=== PATIENT | female | born 1955 | race African-American/Black ===

== ENCOUNTER 2017-10-29 22:00 | Emergency (ER) | payer BC ==
[~2017-10-29] VITALS: Ht 165.1 cm; Wt 70.8 kg
[2017-10-29] MEDS ORDERED: TOPROL XL25 MG PO (22:13)
[2017-10-29] MEDS ORDERED: NEURONTIN100 MG PO (22:14)
[2017-10-29 22:15] VITALS: Ht 165.1 cm; Wt 70.8 kg
[2017-10-29 22:53] LABS: CARBON DIOXIDE 25.8 mmol/L (21-32); CHLORIDE SERUM 102 mmol/L (98-107); CREATININE SERUM 0.8 mg/dL (0.6-1.0); GFR1 > 60 mL/min; GLUCOSE SERUM 123 mg/dL (74-106); POTASSIUM SERUM 3.3 mmol/L (3.5-5.1); SODIUM SERUM 140 mmol/L (136-145)
[2017-10-29 22:58] LABS: ALBUMIN 3.8 g/dL (3.4-5.0); ALKALINE PHOSPHATASE 59 U/L (46-116); ALT/SGPT 17 U/L (14-59); AST/SGOT 16 U/L (15-37); BILIRUBIN TOTAL 0.5 mg/dL (0.20-1.00)
[2017-10-29 23:00] LABS: BASOPHIL % 0.4 % (0-2); PLATELET COUNT 248 x10^3mcL (130-400); RED CELL DISTRIBUTION WIDTH 13.6 % (11.5-14.5)
[2017-10-30 00:10] LABS: UA SPECIFIC GRAVITY 1.015 (1.005-1.035); microscopic required? YES; urine erythrocyte NEGATIVE (NEGATIVE)
[2017-10-30 03:33] VITALS: BP 158/92
== END 2017-10-30 03:33 | disposition home or self-care (01) ==
LOC: ED 22:00
PROVIDERS: Emergency Medicine
DX: N39.0 Urinary tract infection, site not specified (principal); J44.9 Chronic obstructive pulmonary disease, unspecified; I10 Essential (primary) hypertension; Z88.0 Allergy status to penicillin; Z88.2 Allergy status to sulfonamides
CPT/HCPCS: J7030; Q0092; Q9967